=== PATIENT | female | born 1990 | race African-American/Black ===

== ENCOUNTER 2017-08-20 16:03 | Inpatient (IN) | payer MEDICAID ==
[~2017-08-20] VITALS: Ht 170.2 cm; Wt 100.0 kg
[2017-08-20 17:45] VITALS: BP 116/65
[2017-08-20] MEDS ORDERED: INFLUENZA VIRUS VACCINE QVS 2017-18 (3YR+)/PF 60 MCG/0.5 ML SYRINGE IM ONE (18:00)
[2017-08-20] MEDS: LORazepam 2 MG TABLET PO PRN (19:32)
[2017-08-20] MEDS: HALOPERIDOL 5 MG TABLET PO PRN (19:32)
[2017-08-20] MEDS: ZOLPIDEM TARTRATE 10 MG TABLET PO PRN (20:09)
[2017-08-20 21:29] VITALS: BP 122/67
[2017-08-21 00:29] VITALS: BP 130/72
[2017-08-21] MEDS: LORazepam 2 MG TABLET PO PRN ×4 (02:35→20:28)
[2017-08-21 04:00] VITALS: BP 127/71
[2017-08-21 08:13] LABS: BASOPHILS % (AUTO) 0.2 % (0.0-2.0); EOSINOPHILS % (AUTO) 2.8 % (1.0-6.0); HEMATOCRIT 30.4 % (36-46); HEMOGLOBIN 10.2 g/dL (12.0-16.0); LYMPHOCYTES # (AUTO) 1.8 K/uL (1.0-4.8); LYMPHOCYTES % (AUTO) 13.1 % (22.0-44.0); MEAN CORPUSCULAR HEMOGLOBIN 26.7 pg (26.0-34.0); MEAN CORPUSCULAR HGB CONC 33.5 G/dL (31.0-37.0); MEAN CORPUSCULAR VOLUME 80 fL (80-100); MONOCYTES # (AUTO) 1.1 K/uL (0.1-1.0); MONOCYTES % (AUTO) 8.3 % (2.0-9.0); NEUTROPHILS # (AUTO) 10.2 K/uL (1.8-7.7); NEUTROPHILS % (AUTO) 75.6 % (40.0-70.0); PLATELET COUNT (AUTO) 415 K/uL (150-450); RED BLOOD CELL COUNT(AUTO) 3.81 MIL/uL (4.00-5.20); RED CELL DISTRIBUTION WIDTH 16.4 % (11.5-14.5); WHITE BLOOD COUNT (AUTO) 13.5 K/uL (4.5-11.0)
[2017-08-21 08:30] VITALS: BP 120/74
[2017-08-21 08:47] LABS: HEMOGLOBIN A1C 5.3 % (4.5-6.2)
[2017-08-21] MEDS: BACITRACIN 28.4 GM OINTMENT TP SCH ×2 (08:54→16:06)
[2017-08-21 08:56] LABS: ALANINE AMINOTRANSFERASE 24 U/L (12-78); ALBUMIN 2.9 g/dL (3.4-5.0); ANION GAP 7 mmol/L (8-16); ASPARTATE AMINOTRANSFERASE 15 U/L (15-37); BILIRUBIN,TOTAL 0.5 mg/dL (0.1-1.0); CALCIUM, TOTAL 8.5 mg/dL (8.8-10.5); CARBON DIOXIDE 28 mmol/L (22-29); CHLORIDE 102 mmol/L (98-107); CHOL/HDL RATIO 2.2 (3.9-5.7); CREATININE 0.58 mg/dL (0.60-1.30); GLOMERULAR FILTR. RATE CALC > 60 mL/min (>60); POTASSIUM 3.7 mmol/L (3.5-5.1); SODIUM SERUM 137 mmol/L (136-145); THYROID STIMULATING HORMONE 1.41 uIU/mL (0.36-3.74); TOTAL PROTEIN, SERUM 6.7 g/dL (6.4-8.2); UREA NITROGEN, BLOOD 8 mg/dL (7-18)
[2017-08-21] MEDS ORDERED: ACETAMINOPHEN 325 MG TABLET PO PRN (11:45)
[2017-08-21] MEDS: IBUPROFEN 600 MG TABLET PO PRN (14:36)
[2017-08-21 16:05] VITALS: BP 126/70
[2017-08-21] MEDS: SULFAMETHOX/TRIMETH DS 800-160 MG/TABLET PO SCH (16:06)
[2017-08-21] MEDS: HALOPERIDOL 5 MG TABLET PO PRN (16:06)
[2017-08-21] MEDS: NICOTINE 7 MG/24 HOUR PATCH TD SCH (17:27)
[2017-08-21] MEDS: RisperiDONE 1 MG TABLET PO SCH (20:27)
[2017-08-21] MEDS: ZOLPIDEM TARTRATE 10 MG TABLET PO PRN (20:28)
[2017-08-22 03:15] VITALS: BP 117/68
[2017-08-22] MEDS: IBUPROFEN 600 MG TABLET PO PRN ×3 (03:17→21:25)
[2017-08-22] MEDS: FERROUS SULFATE 325 MG EC TABLET PO SCH ×2 (06:32→16:42)
[2017-08-22] MEDS: RisperiDONE 1 MG TABLET PO SCH ×2 (08:10→20:22)
[2017-08-22] MEDS: SULFAMETHOX/TRIMETH DS 800-160 MG/TABLET PO SCH ×2 (08:10→16:42)
[2017-08-22] MEDS: BACITRACIN 28.4 GM OINTMENT TP SCH ×2 (08:10→16:43)
[2017-08-22] MEDS: NICOTINE 7 MG/24 HOUR PATCH TD SCH (08:11)
[2017-08-22] MEDS: LORazepam 2 MG TABLET PO PRN ×3 (08:11→20:22)
[2017-08-22 17:39] VITALS: BP 119/70
[2017-08-22] MEDS: ZOLPIDEM TARTRATE 10 MG TABLET PO PRN (21:01)
[2017-08-22 21:25] VITALS: BP 120/74
[2017-08-23 05:48] VITALS: BP 129/80
[2017-08-23] MEDS: FERROUS SULFATE 325 MG EC TABLET PO SCH ×2 (07:00→17:00)
[2017-08-23 08:10] VITALS: BP 124/77
[2017-08-23] MEDS: NICOTINE 7 MG/24 HOUR PATCH TD SCH (08:17)
[2017-08-23] MEDS: RisperiDONE 1 MG TABLET PO SCH ×2 (08:17→20:13)
[2017-08-23] MEDS: LORazepam 2 MG TABLET PO PRN (08:17)
[2017-08-23] MEDS: SULFAMETHOX/TRIMETH DS 800-160 MG/TABLET PO SCH ×2 (08:17→17:00)
[2017-08-23] MEDS: BACITRACIN 28.4 GM OINTMENT TP SCH ×2 (08:18→17:00)
[2017-08-23] MEDS: IBUPROFEN 600 MG TABLET PO PRN (11:35)
[2017-08-23 12:00] VITALS: BP 124/70
[2017-08-23] MEDS ORDERED: PERMETHRIN 1% 60 ML LOTION TP ONE (12:00)
[2017-08-23 19:04] VITALS: BP 118/70
[2017-08-23] MEDS: CEPHALEXIN MONOHYDRATE 500 MG CAPSULE PO SCH (20:13)
[2017-08-23] MEDS: ZOLPIDEM TARTRATE 10 MG TABLET PO PRN (20:17)
[2017-08-24 04:01] VITALS: BP 125/66
[2017-08-24] MEDS: FERROUS SULFATE 325 MG EC TABLET PO SCH ×2 (06:56→16:41)
[2017-08-24 08:30] VITALS: BP 128/73
[2017-08-24] MEDS: BACITRACIN 28.4 GM OINTMENT TP SCH ×2 (08:50→16:01)
[2017-08-24] MEDS: RisperiDONE 1 MG TABLET PO SCH ×2 (08:50→20:21)
[2017-08-24] MEDS: CEPHALEXIN MONOHYDRATE 500 MG CAPSULE PO SCH ×4 (08:50→20:21)
[2017-08-24] MEDS: SULFAMETHOX/TRIMETH DS 800-160 MG/TABLET PO SCH ×2 (08:50→16:01)
[2017-08-24] MEDS: NICOTINE 7 MG/24 HOUR PATCH TD SCH (08:51)
[2017-08-24 12:00] VITALS: BP 115/67
[2017-08-24] MEDS ORDERED: CEPH500 PO (13:40)
[2017-08-24] MEDS ORDERED: FERR-89 PO (13:44)
[2017-08-24] MEDS ORDERED: RISP1 PO (13:45)
[2017-08-24] MEDS ORDERED: BACTDSB PO (13:46)
[2017-08-24 17:15] VITALS: BP 130/74
[2017-08-25 06:38] VITALS: BP 117/67
[2017-08-25] MEDS: FERROUS SULFATE 325 MG EC TABLET PO SCH (06:53)
[2017-08-25] MEDS: CEPHALEXIN MONOHYDRATE 500 MG CAPSULE PO SCH (08:08)
[2017-08-25] MEDS: SULFAMETHOX/TRIMETH DS 800-160 MG/TABLET PO SCH (08:08)
[2017-08-25] MEDS: RisperiDONE 1 MG TABLET PO SCH (08:08)
[2017-08-25] MEDS: BACITRACIN 28.4 GM OINTMENT TP SCH (08:09)
[2017-08-25] MEDS: NICOTINE 7 MG/24 HOUR PATCH TD SCH (08:09)
[2017-08-25 08:30] VITALS: BP 109/84
[2017-08-25] MEDS ORDERED: CEPH250 PO (09:10)
== END 2017-08-25 15:24 | disposition home or self-care (01) | DRG 750 ==
LOC: B3A 17:11
DX: F20.0 Paranoid schizophrenia (principal); Z59.0 Homelessness; D64.9 Anemia, unspecified; K21.9 Gastro-esophageal reflux disease without esophagitis; R00.0 Tachycardia, unspecified; D72.829 Elevated white blood cell count, unspecified; L08.9 Local infection of the skin and subcutaneous tissue, unspecified; Z28.21 Immunization not carried out because of patient refusal
CPT/HCPCS: 83036; 84439; 84443; 87081

== ENCOUNTER 2017-08-23 14:10 | Emergency (ER) | payer MEDICAID ==
[~2017-08-23] VITALS: Ht 177.8 cm; Wt 90.9 kg
[2017-08-23] MEDS ORDERED: IOVERSOL 350 MG/ML 100 ML VIAL ONE (14:48)
[2017-08-23 15:25] LABS: BASOPHILS % (AUTO) 1.3 % (0.0-2.0); EOSINOPHILS % (AUTO) 2.8 % (1.0-6.0); HEMATOCRIT 31.9 % (36-46); HEMOGLOBIN 10.3 g/dL (12.0-16.0); LYMPHOCYTES # (AUTO) 2.5 K/uL (1.0-4.8); MEAN CORPUSCULAR HEMOGLOBIN 25.9 pg (26.0-34.0); MEAN CORPUSCULAR HGB CONC 32.3 G/dL (31.0-37.0); MEAN CORPUSCULAR VOLUME 80 fL (80-100); MONOCYTES # (AUTO) 0.9 K/uL (0.1-1.0); MONOCYTES % (AUTO) 5.3 % (2.0-9.0); NEUTROPHILS # (AUTO) 12.8 K/uL (1.8-7.7); NEUTROPHILS % (AUTO) 75.6 % (40.0-70.0); PLATELET COUNT (AUTO) 553 K/uL (150-450); RED BLOOD CELL COUNT(AUTO) 3.97 MIL/uL (4.00-5.20); RED CELL DISTRIBUTION WIDTH 16.3 % (11.5-14.5); WHITE BLOOD COUNT (AUTO) 16.9 K/uL (4.5-11.0)
[2017-08-23 15:32] LABS: ANION GAP 9 mmol/L (8-16); CARBON DIOXIDE 29 mmol/L (22-29); CHLORIDE 99 mmol/L (98-107); CREATININE 0.68 mg/dL (0.60-1.30); GLOMERULAR FILTR. RATE CALC > 60 mL/min (>60); POTASSIUM 4.7 mmol/L (3.5-5.1); SODIUM SERUM 137 mmol/L (136-145); UREA NITROGEN, BLOOD 11 mg/dL (7-18)
[2017-08-23] MEDS ORDERED: LIDOCAINE HCL/PF 1% 2 ML VIAL IM ONE (17:30)
[2017-08-23] MEDS ORDERED: CefTRIAXone SODIUM 1 GM/VIAL IM ONE (17:30)
[2017-08-23 18:11] VITALS: BP 125/80
[2017-08-24] MEDS ORDERED: CEPH500 PO (13:40)
[2017-08-24] MEDS ORDERED: FERR-89 PO (13:44)
[2017-08-24] MEDS ORDERED: RISP1 PO (13:45)
[2017-08-24] MEDS ORDERED: BACTDSB PO (13:46)
== END 2017-08-23 18:32 | disposition home or self-care (01) ==
LOC: EMS 14:11
DX: L02.11 Cutaneous abscess of neck (principal); K21.9 Gastro-esophageal reflux disease without esophagitis
CPT/HCPCS: 36415; 70491; 80048; 84703; 85025; 96372; 99285; J0696; J3490; Q9967

== ENCOUNTER 2018-01-19 18:53 | Emergency (ER) | payer MEDICAID ==
[~2018-01-19] VITALS: Ht 177.8 cm; Wt 100.0 kg
[~2018-01-19 18:53] MED LIST: BACTDSB PO; CEPH500 PO; FERR-89 PO; RISP1 PO
[2018-01-19 20:20] LABS: BASOPHILS % (AUTO) 1.4 % (0.0-2.0); EOSINOPHILS % (AUTO) 3.7 % (1.0-6.0); HEMATOCRIT 33.7 % (36-46); HEMOGLOBIN 10.9 g/dL (12.0-16.0); LYMPHOCYTES # (AUTO) 3.2 K/uL (1.0-4.8); LYMPHOCYTES % (AUTO) 23.5 % (22.0-44.0); MEAN CORPUSCULAR HGB CONC 32.4 G/dL (31.0-37.0); MEAN CORPUSCULAR VOLUME 74 fL (80-100); MONOCYTES # (AUTO) 0.7 K/uL (0.1-1.0); NEUTROPHILS # (AUTO) 9.1 K/uL (1.8-7.7); NEUTROPHILS % (AUTO) 66.4 % (40.0-70.0); PLATELET COUNT (AUTO) 580 K/uL (150-450); RED BLOOD CELL COUNT(AUTO) 4.56 MIL/uL (4.00-5.20); RED CELL DISTRIBUTION WIDTH 17.9 % (11.5-14.5)
[2018-01-19 20:28] LABS: ANION GAP 7 mmol/L (8-16); CALCIUM, TOTAL 8.6 mg/dL (8.8-10.5); CARBON DIOXIDE 29 mmol/L (22-29); CHLORIDE 101 mmol/L (98-107); CREATININE 0.64 mg/dL (0.60-1.30); GLOMERULAR FILTR. RATE CALC > 60 mL/min (>60); GLUCOSE,RANDOM 85 mg/dL (70-110); POTASSIUM 3.4 mmol/L (3.5-5.1); SODIUM SERUM 137 mmol/L (136-145); UREA NITROGEN, BLOOD 6 mg/dL (7-18)
[2018-01-19] MEDS ORDERED: LORazepam 2 MG/ML VIAL IM ONE (20:30)
[2018-01-19] MEDS ORDERED: HALOPERIDOL LACTATE 5 MG/ML VIAL IM ONE (20:30)
[2018-01-19] MEDS ORDERED: DiphenhydrAMINE HCL 25 MG CAPSULE PO ONE (20:30)
[2018-01-19] MEDS ORDERED: HALOPERIDOL 5 MG TABLET PO ONE (20:30)
[2018-01-19] MEDS ORDERED: DiphenhydrAMINE HCL 50 MG/ML VIAL IM ONE (20:30)
[2018-01-19] MEDS ORDERED: LORazepam 1 MG TABLET PO ONE (20:30)
[2018-01-19 20:34] LABS: ALANINE AMINOTRANSFERASE 24 U/L (12-78); ALBUMIN 3.8 g/dL (3.4-5.0); ALKALINE PHOSPHATASE 72 U/L (46-116); ASPARTATE AMINOTRANSFERASE 20 U/L (15-37); BILIRUBIN,TOTAL 0.2 mg/dL (0.1-1.0); TOTAL PROTEIN, SERUM 7.9 g/dL (6.4-8.2)
[2018-01-19 21:32] VITALS: BP 143/81
== END 2018-01-19 22:13 | disposition home or self-care (01) ==
LOC: EMS 18:55
DX: F20.9 Schizophrenia, unspecified (principal); K21.9 Gastro-esophageal reflux disease without esophagitis; G89.29 Other chronic pain; Z79.899 Other long term (current) drug therapy
CPT/HCPCS: 36415; 80053; 85025; 99284; G0480

== ENCOUNTER 2018-01-31 05:32 | Emergency (ER) | payer MEDICAID ==
[~2018-01-31] VITALS: Ht 165.1 cm; Wt 77.3 kg
[~2018-01-31 05:32] MED LIST changes: -BACTDSB PO; -CEPH500 PO
[2018-01-31 05:35] VITALS: BP 126/85
[2018-01-31] MEDS ORDERED: IBUPROFEN 600 MG TABLET PO ONE (08:30)
== END 2018-01-31 08:30 | disposition home or self-care (01) ==
LOC: EMS 05:34
DX: G89.29 Other chronic pain (principal); K21.9 Gastro-esophageal reflux disease without esophagitis
CPT/HCPCS: 99283

== ENCOUNTER 2018-02-07 04:39 | Emergency (ER) | payer MEDICAID ==
[~2018-02-07] VITALS: Ht 177.8 cm; Wt 118.2 kg
[2018-02-07 05:39] LABS: BASOPHILS % (AUTO) 0.5 % (0.0-2.0); EOSINOPHILS % (AUTO) 4.1 % (1.0-6.0); HEMATOCRIT 32.6 % (36-46); HEMOGLOBIN 10.6 g/dL (12.0-16.0); LYMPHOCYTES # (AUTO) 2.5 K/uL (1.0-4.8); MEAN CORPUSCULAR HEMOGLOBIN 24.1 pg (26.0-34.0); MEAN CORPUSCULAR HGB CONC 32.5 G/dL (31.0-37.0); MEAN CORPUSCULAR VOLUME 74 fL (80-100); MONOCYTES # (AUTO) 0.7 K/uL (0.1-1.0); MONOCYTES % (AUTO) 5.9 % (2.0-9.0); NEUTROPHILS # (AUTO) 8.6 K/uL (1.8-7.7); NEUTROPHILS % (AUTO) 69.5 % (40.0-70.0); PLATELET COUNT (AUTO) 459 K/uL (150-450); RED CELL DISTRIBUTION WIDTH 17.2 % (11.5-14.5)
[2018-02-07 05:42] LABS: ANION GAP 3 mmol/L (8-16); CALCIUM, TOTAL 8.1 mg/dL (8.8-10.5); CARBON DIOXIDE 29 mmol/L (22-29); CHLORIDE 103 mmol/L (98-107); CREATININE 0.71 mg/dL (0.60-1.30); GLOMERULAR FILTR. RATE CALC > 60 mL/min (>60); GLUCOSE,RANDOM 90 mg/dL (70-110); POTASSIUM 3.4 mmol/L (3.5-5.1); SODIUM SERUM 135 mmol/L (136-145); UREA NITROGEN, BLOOD 7 mg/dL (7-18)
[2018-02-07 05:48] LABS: ALANINE AMINOTRANSFERASE 21 U/L (12-78); ALBUMIN 3.4 g/dL (3.4-5.0); ALKALINE PHOSPHATASE 66 U/L (46-116); ASPARTATE AMINOTRANSFERASE 17 U/L (15-37); BILIRUBIN,TOTAL 0.3 mg/dL (0.1-1.0); TOTAL PROTEIN, SERUM 7.4 g/dL (6.4-8.2)
[2018-02-07] MEDS ORDERED: IBUPROFEN 600 MG TABLET PO ONE (08:15)
[2018-02-07 08:30] VITALS: BP 112/82
== END 2018-02-07 08:40 | disposition home or self-care (01) ==
LOC: EMS 04:40
DX: F32.9 Major depressive disorder, single episode, unspecified (principal); R45.851 Suicidal ideations; M79.1 Myalgia; E87.6 Hypokalemia; F20.9 Schizophrenia, unspecified; K21.9 Gastro-esophageal reflux disease without esophagitis; Z59.0 Homelessness
CPT/HCPCS: 36415; 80053; 85025; 99284; G0480

== ENCOUNTER 2019-03-11 19:22 | Inpatient (IN) | payer MEDICAID ==
[~2019-03-11] VITALS: Ht 177.8 cm; Wt 111.5 kg
[2019-03-11] MEDS ORDERED: HALOPERIDOL 5 MG TABLET PO PRN (21:45)
[2019-03-11] MEDS ORDERED: ZOLPIDEM TARTRATE 10 MG TABLET PO PRN (21:45)
[2019-03-11 21:53] VITALS: BP 125/74
[2019-03-12 06:08] VITALS: BP 127/72
[2019-03-12 07:40] LABS: BASOPHILS % (AUTO) 0.7 % (0.0-2.0); EOSINOPHILS % (AUTO) 3.1 % (1.0-6.0); HEMATOCRIT 32.4 % (36-46); HEMOGLOBIN 10.4 g/dL (12.0-16.0); LYMPHOCYTES # (AUTO) 2.3 K/uL (1.0-4.8); LYMPHOCYTES % (AUTO) 21.5 % (22.0-44.0); MEAN CORPUSCULAR HEMOGLOBIN 24.2 pg (26.0-34.0); MEAN CORPUSCULAR HGB CONC 32.2 G/dL (31.0-37.0); MEAN CORPUSCULAR VOLUME 75 fL (80-100); MONOCYTES # (AUTO) 0.5 K/uL (0.1-1.0); MONOCYTES % (AUTO) 4.8 % (2.0-9.0); NEUTROPHILS # (AUTO) 7.3 K/uL (1.8-7.7); NEUTROPHILS % (AUTO) 69.9 % (40.0-70.0); PLATELET COUNT (AUTO) 551 K/uL (150-450); RED CELL DISTRIBUTION WIDTH 19.4 % (11.5-14.5)
[2019-03-12 08:11] LABS: ALANINE AMINOTRANSFERASE 18 U/L (12-78); ALBUMIN 3.1 g/dL (3.4-5.0); ALKALINE PHOSPHATASE 73 U/L (46-116); ANION GAP 10 mmol/L (8-16); ASPARTATE AMINOTRANSFERASE 14 U/L (15-37); BILIRUBIN,TOTAL 0.3 mg/dL (0.1-1.0); CALCIUM, TOTAL 8.6 mg/dL (8.8-10.5); CARBON DIOXIDE 27 mmol/L (22-29); CHLORIDE 105 mmol/L (98-107); CHOL/HDL RATIO 3.7 (3.9-5.7); CHOLESTEROL 126 mg/dL (131-200); CREATININE 0.73 mg/dL (0.60-1.30); FREE T4 (FREE THYROXINE) 0.96 ng/dL (0.76-1.46); GLOMERULAR FILTR. RATE CALC > 60 mL/min (>60); GLUCOSE,RANDOM 83 mg/dL (70-110); HCG,QUANTITATIVE < 1 mIU/mL (0-6); HDL CHOLESTEROL 34 mg/dL (40-60); LDL CHOL (CALC.) 77 mg/dL (0-130); SODIUM SERUM 142 mmol/L (136-145); THYROID STIMULATING HORMONE 1.62 uIU/mL (0.36-3.74); TOTAL PROTEIN, SERUM 6.9 g/dL (6.4-8.2); TRIGLYCERIDES 77 mg/dL (15-150); UREA NITROGEN, BLOOD 8 mg/dL (7-18)
[2019-03-12 08:14] VITALS: BP 135/80
[2019-03-12] MEDS ORDERED: ONDANSETRON HCL 4 MG TABLET PO PRN (08:15)
[2019-03-12] MEDS ORDERED: MAGNESIUM HYDROXIDE SUSPENSION 30 ML UDCUP PO PRN (08:15)
[2019-03-12] MEDS ORDERED: ALBUTEROL SULFATE HFA 90 MCG/PUFF 8 GM INHALER IH PRN (08:15)
[2019-03-12] MEDS ORDERED: OMEPRAZOLE 20 MG CAPSULE PO PRN (08:15)
[2019-03-12] MEDS ORDERED: MAG HYDROX/AL HYDROX/SIMETH ES 30 ML SUSPENSION UDCUP PO PRN (08:15)
[2019-03-12] MEDS ORDERED: PETROLATUM,WHITE 28 GM JELLY TP PRN (08:15)
[2019-03-12] MEDS ORDERED: DOCUSATE SODIUM 100 MG CAPSULE PO PRN (08:15)
[2019-03-12] MEDS ORDERED: BACITRACIN 28.4 GM OINTMENT TP PRN (08:15)
[2019-03-12] MEDS ORDERED: ACETAMINOPHEN 325 MG TABLET PO PRN (08:15)
[2019-03-12] MEDS ORDERED: BENZOCAINE/MENTHOL LOZENGE MM PRN (08:15)
[2019-03-12] MEDS ORDERED: LOPERAMIDE HCL 2 MG CAPSULE PO PRN (08:15)
[2019-03-12] MEDS ORDERED: CloNIDine HCL 0.1 MG TABLET PO PRN (08:15)
[2019-03-12 15:15] VITALS: BP 127/88
[2019-03-12] MEDS: IBUPROFEN 600 MG TABLET PO PRN (15:17)
[2019-03-12 16:05] VITALS: BP 127/88
[2019-03-12] MEDS: LORazepam 2 MG TABLET PO PRN (16:37)
[2019-03-12] MEDS: RisperiDONE 3 MG TABLET PO SCH (20:56)
[2019-03-13] MEDS: RisperiDONE 3 MG TABLET PO SCH ×2 (08:54→16:12)
[2019-03-13] MEDS: LORazepam 2 MG TABLET PO PRN ×2 (12:20→16:55)
[2019-03-13 16:00] VITALS: BP 158/85
[2019-03-13] MEDS: IBUPROFEN 600 MG TABLET PO PRN (16:12)
[2019-03-14 05:52] VITALS: BP 107/65
[2019-03-14 08:28] VITALS: BP 122/74
[2019-03-14] MEDS: LORazepam 2 MG TABLET PO PRN ×2 (09:01→17:24)
[2019-03-14] MEDS: RisperiDONE 3 MG TABLET PO SCH ×2 (09:01→17:02)
[2019-03-14] MEDS: MULTIVITAMINS WITH IRON TABLET PO SCH (09:01)
[2019-03-14] MEDS: ASPIRIN 81 MG CHEWABLE TABLET PO SCH (09:03)
[2019-03-14 15:50] VITALS: BP 102/59
[2019-03-14 16:26] VITALS: BP 102/59
[2019-03-15 04:23] VITALS: BP 104/63
[2019-03-15 08:04] VITALS: BP 127/72
[2019-03-15] MEDS ORDERED: ASPI81TA39 PO (08:11)
[2019-03-15] MEDS ORDERED: MVITFE PO (08:11)
[2019-03-15] MEDS ORDERED: RISP3 PO (08:11)
[2019-03-15] MEDS: RisperiDONE 3 MG TABLET PO SCH (08:53)
[2019-03-15] MEDS: ASPIRIN 81 MG CHEWABLE TABLET PO SCH (08:53)
[2019-03-15] MEDS: MULTIVITAMINS WITH IRON TABLET PO SCH (08:53)
== END 2019-03-15 10:02 | disposition home or self-care (01) | DRG 750 ==
LOC: B3A 20:35
PROVIDERS: ADMIT Psychiatry & Neurology Psychiatry; ATTEND Psychiatry & Neurology Psychiatry
DX: F25.9 Schizoaffective disorder, unspecified (principal); R45.851 Suicidal ideations; D64.9 Anemia, unspecified; F32.9 Major depressive disorder, single episode, unspecified; F41.9 Anxiety disorder, unspecified; G47.00 Insomnia, unspecified; K59.00 Constipation, unspecified; D47.3 Essential (hemorrhagic) thrombocythemia; D72.89 Other specified disorders of white blood cells
CPT/HCPCS: 84439; 84443; 87081

== ENCOUNTER 2019-03-17 19:35 | Inpatient (IN) | payer MEDICAID, OTHER ==
[~2019-03-17] VITALS: Ht 180.3 cm; Wt 114.5 kg
[~2019-03-17 19:35] MED LIST changes: +ASPI81TA39 PO; -FERR-89 PO; +MVITFE PO; -RISP1 PO; +RISP3 PO
[2019-03-17 20:52] LABS: AMPHET/METH SCREEN,URINE NEGATIVE (NEGATIVE); BARBITURATE SCREEN, URINE NEGATIVE (NEGATIVE); BENZODIAZEPINES SCREEN,URINE NEGATIVE (NEGATIVE); CANNABINOID SCREEN,URINE NEGATIVE (NEGATIVE); COCAINE SCREEN,URINE NEGATIVE (NEGATIVE); METHADONE SCREEN, URINE NEGATIVE (NEGATIVE); OPIATE SCREEN,URINE NEGATIVE (NEGATIVE); PHENCYCLIDINE SCREEN,URINE NEGATIVE (NEGATIVE)
[2019-03-17 23:30] LABS: BASOPHILS % (AUTO) 0.8 % (0.0-2.0); EOSINOPHILS % (AUTO) 3.3 % (1.0-6.0); HEMATOCRIT 30.9 % (36-46); HEMOGLOBIN 9.9 g/dL (12.0-16.0); LYMPHOCYTES # (AUTO) 3.4 K/uL (1.0-4.8); LYMPHOCYTES % (AUTO) 24.3 % (22.0-44.0); MEAN CORPUSCULAR HGB CONC 32.1 G/dL (31.0-37.0); MEAN CORPUSCULAR VOLUME 75 fL (80-100); MONOCYTES # (AUTO) 0.9 K/uL (0.1-1.0); MONOCYTES % (AUTO) 6.4 % (2.0-9.0); NEUTROPHILS % (AUTO) 65.2 % (40.0-70.0); PLATELET COUNT (AUTO) 497 K/uL (150-450); RED BLOOD CELL COUNT(AUTO) 4.13 MIL/uL (4.00-5.20); RED CELL DISTRIBUTION WIDTH 18.9 % (11.5-14.5)
[2019-03-17 23:36] LABS: ANION GAP 10 mmol/L (8-16); CALCIUM, TOTAL 8.1 mg/dL (8.8-10.5); CARBON DIOXIDE 23 mmol/L (22-29); CHLORIDE 103 mmol/L (98-107); CREATININE 0.61 mg/dL (0.60-1.30); GLOMERULAR FILTR. RATE CALC > 60 mL/min (>60); GLUCOSE,RANDOM 127 mg/dL (70-110); POTASSIUM 3.5 mmol/L (3.5-5.1); SODIUM SERUM 136 mmol/L (136-145); UREA NITROGEN, BLOOD 8 mg/dL (7-18)
[2019-03-17 23:44] LABS: ALANINE AMINOTRANSFERASE 19 U/L (12-78); ALBUMIN 2.9 g/dL (3.4-5.0); ALKALINE PHOSPHATASE 70 U/L (46-116); ASPARTATE AMINOTRANSFERASE 14 U/L (15-37); BILIRUBIN,TOTAL 0.1 mg/dL (0.1-1.0); TOTAL PROTEIN, SERUM 6.6 g/dL (6.4-8.2)
[2019-03-18] MEDS ORDERED: HALOPERIDOL 5 MG TABLET PO PRN (00:30)
[2019-03-18] MEDS ORDERED: ZOLPIDEM TARTRATE 10 MG TABLET PO PRN (00:30)
[2019-03-18 03:00] LABS: APPEARANCE,URINE CLEAR (CLEAR); BILIRUBIN,URINE NEGATIVE (NEGATIVE); GLUCOSE, URINE (UA) NEGATIVE (NEGATIVE); KETONES,URINE NEGATIVE (NEGATIVE); LEUKOCYTE ESTERASE ,URINE NEGATIVE (NEGATIVE); NITRATE,URINE NEGATIVE (NEGATIVE); OCCULT BLOOD,URINE NEGATIVE (NEGATIVE); PROTEIN,URINE NEGATIVE (NEGATIVE); UROBILINOGEN,URINE 0.2 mg/dL (<=1.0)
[2019-03-18 03:21] VITALS: BP 116/61
[2019-03-18 08:41] VITALS: BP 105/87
[2019-03-18] MEDS: LORazepam 2 MG TABLET PO PRN (10:13)
[2019-03-18] MEDS ORDERED: OMEPRAZOLE 20 MG CAPSULE PO PRN (11:00)
[2019-03-18] MEDS ORDERED: ALBUTEROL SULFATE HFA 90 MCG/PUFF 8 GM INHALER IH PRN (11:00)
[2019-03-18] MEDS ORDERED: IBUPROFEN 600 MG TABLET PO PRN (11:00)
[2019-03-18] MEDS ORDERED: ACETAMINOPHEN 325 MG TABLET PO PRN (11:00)
[2019-03-18] MEDS ORDERED: ONDANSETRON HCL 4 MG TABLET PO PRN (11:00)
[2019-03-18] MEDS ORDERED: PETROLATUM,WHITE 28 GM JELLY TP PRN (11:00)
[2019-03-18] MEDS ORDERED: CloNIDine HCL 0.1 MG TABLET PO PRN (11:00)
[2019-03-18] MEDS ORDERED: BENZOCAINE/MENTHOL LOZENGE MM PRN (11:00)
[2019-03-18] MEDS ORDERED: LOPERAMIDE HCL 2 MG CAPSULE PO PRN (11:00)
[2019-03-18] MEDS ORDERED: MAG HYDROX/AL HYDROX/SIMETH ES 30 ML SUSPENSION UDCUP PO PRN (11:00)
[2019-03-18] MEDS ORDERED: MAGNESIUM HYDROXIDE SUSPENSION 30 ML UDCUP PO PRN (11:00)
[2019-03-18] MEDS ORDERED: BACITRACIN 28.4 GM OINTMENT TP PRN (11:00)
[2019-03-18] MEDS ORDERED: DOCUSATE SODIUM 100 MG CAPSULE PO PRN (11:00)
[2019-03-18 17:03] VITALS: BP 110/65
[2019-03-18] MEDS: RisperiDONE 3 MG TABLET PO SCH (19:23)
[2019-03-19 06:37] LABS: BAND NEUTROPHILS % (MANUAL) 0 % (0-5)
[2019-03-19 06:39] LABS: HEMATOCRIT 34.3 % (36-46); HEMOGLOBIN 10.7 g/dL (12.0-16.0); MEAN CORPUSCULAR HGB CONC 31.2 G/dL (31.0-37.0); MEAN CORPUSCULAR VOLUME 77 fL (80-100); PLATELET COUNT (AUTO) 494 K/uL (150-450); RED BLOOD CELL COUNT(AUTO) 4.47 MIL/uL (4.00-5.20); RED CELL DISTRIBUTION WIDTH 18.8 % (11.5-14.5)
[2019-03-19 06:50] LABS: HEMOGLOBIN A1C 5.9 % (4.5-6.2)
[2019-03-19 07:11] LABS: ANION GAP 9 mmol/L (8-16); CALCIUM, TOTAL 8.2 mg/dL (8.8-10.5); CARBON DIOXIDE 24 mmol/L (22-29); CHLORIDE 102 mmol/L (98-107); CHOL/HDL RATIO 3.7 (3.9-5.7); CHOLESTEROL 119 mg/dL (131-200); CREATININE 0.58 mg/dL (0.60-1.30); GLOMERULAR FILTR. RATE CALC > 60 mL/min (>60); GLUCOSE,RANDOM 86 mg/dL (70-110); HDL CHOLESTEROL 32 mg/dL (40-60); LDL CHOL (CALC.) 51 mg/dL (0-130); PHOSPHORUS 3.6 mg/dL (2.5-4.9); POTASSIUM 4.4 mmol/L (3.5-5.1); SODIUM SERUM 135 mmol/L (136-145); TRIGLYCERIDES 181 mg/dL (15-150); UREA NITROGEN, BLOOD 6 mg/dL (7-18)
[2019-03-19 07:53] LABS: EOSINOPHILS % (MANUAL) 2 % (1-6); LYMPHOCYTES % (MANUAL) 19 % (22-44); MONOCYTES % (MANUAL) 8 % (2-9); SEGMENTED NEUTROPHILS % 71 % (40-70)
[2019-03-19] MEDS: LORazepam 2 MG TABLET PO PRN ×2 (08:12→12:45)
[2019-03-19] MEDS: MULTIVITAMINS WITH IRON TABLET PO SCH (08:15)
[2019-03-19] MEDS: ASPIRIN 81 MG CHEWABLE TABLET PO SCH (08:15)
[2019-03-19] MEDS: RisperiDONE 3 MG TABLET PO SCH ×2 (08:15→16:07)
[2019-03-19 10:34] VITALS: BP 122/73
[2019-03-19 18:00] VITALS: BP 122/83
[2019-03-20] MEDS: RisperiDONE 3 MG TABLET PO SCH (08:09)
[2019-03-20] MEDS: MULTIVITAMINS WITH IRON TABLET PO SCH (08:09)
[2019-03-20] MEDS: ASPIRIN 81 MG CHEWABLE TABLET PO SCH (08:09)
[2019-03-20 12:40] VITALS: BP 105/72
[2019-03-20] MEDS ORDERED: RISP3 PO (12:40)
== END 2019-03-20 14:50 | disposition home or self-care (01) | DRG 750 ==
LOC: EDBD → EMS 19:36 → 3EC 03-18 02:11
PROVIDERS: ADMIT Psychiatry & Neurology Psychiatry; ATTEND Psychiatry & Neurology Psychiatry
DX: F20.0 Paranoid schizophrenia (principal); R45.851 Suicidal ideations; F41.9 Anxiety disorder, unspecified; D72.829 Elevated white blood cell count, unspecified; D64.9 Anemia, unspecified; G47.00 Insomnia, unspecified; K59.00 Constipation, unspecified; D47.3 Essential (hemorrhagic) thrombocythemia; F32.9 Major depressive disorder, single episode, unspecified; K21.9 Gastro-esophageal reflux disease without esophagitis; Z56.0 Unemployment, unspecified; Z79.899 Other long term (current) drug therapy
CPT/HCPCS: 83036; 83735; 84100; 85007; 87081

== ENCOUNTER 2019-03-21 17:32 | Emergency (ER) | payer MEDICAID, OTHER ==
[~2019-03-21] VITALS: Ht 180.3 cm; Wt 111.0 kg
[2019-03-21 17:52] LABS: BASOPHILS % (AUTO) 0.9 % (0.0-2.0); EOSINOPHILS % (AUTO) 2.4 % (1.0-6.0); HEMATOCRIT 33.9 % (36-46); HEMOGLOBIN 10.7 g/dL (12.0-16.0); LYMPHOCYTES # (AUTO) 2.9 K/uL (1.0-4.8); LYMPHOCYTES % (AUTO) 18.8 % (22.0-44.0); MEAN CORPUSCULAR HGB CONC 31.5 G/dL (31.0-37.0); MEAN CORPUSCULAR VOLUME 76 fL (80-100); MONOCYTES # (AUTO) 0.9 K/uL (0.1-1.0); NEUTROPHILS % (AUTO) 71.9 % (40.0-70.0); PLATELET COUNT (AUTO) 534 K/uL (150-450); RED BLOOD CELL COUNT(AUTO) 4.45 MIL/uL (4.00-5.20); RED CELL DISTRIBUTION WIDTH 18.8 % (11.5-14.5)
[2019-03-21 18:10] LABS: ANION GAP 9 mmol/L (8-16); CALCIUM, TOTAL 8.8 mg/dL (8.8-10.5); CARBON DIOXIDE 25 mmol/L (22-29); CHLORIDE 102 mmol/L (98-107); CREATININE 0.63 mg/dL (0.60-1.30); GLOMERULAR FILTR. RATE CALC > 60 mL/min (>60); GLUCOSE,RANDOM 104 mg/dL (70-110); POTASSIUM 3.7 mmol/L (3.5-5.1); SODIUM SERUM 136 mmol/L (136-145); UREA NITROGEN, BLOOD 8 mg/dL (7-18)
[2019-03-21] MEDS ORDERED: LORazepam 1 MG TABLET PO ONE (18:15)
[2019-03-21 18:17] LABS: ALANINE AMINOTRANSFERASE 25 U/L (12-78); ALBUMIN 3.4 g/dL (3.4-5.0); ALKALINE PHOSPHATASE 78 U/L (46-116); ASPARTATE AMINOTRANSFERASE 19 U/L (15-37); BILIRUBIN,TOTAL 0.1 mg/dL (0.1-1.0); TOTAL PROTEIN, SERUM 7.5 g/dL (6.4-8.2)
[2019-03-21 18:58] LABS: AMPHET/METH SCREEN,URINE NEGATIVE (NEGATIVE); BARBITURATE SCREEN, URINE NEGATIVE (NEGATIVE); BENZODIAZEPINES SCREEN,URINE NEGATIVE (NEGATIVE); CANNABINOID SCREEN,URINE NEGATIVE (NEGATIVE); COCAINE SCREEN,URINE NEGATIVE (NEGATIVE); METHADONE SCREEN, URINE NEGATIVE (NEGATIVE); OPIATE SCREEN,URINE NEGATIVE (NEGATIVE); PHENCYCLIDINE SCREEN,URINE NEGATIVE (NEGATIVE)
[2019-03-22 09:00] VITALS: BP 113/66
[2019-03-22] MEDS ORDERED: LORazepam 2 MG TABLET PO ONE (09:00)
== END 2019-03-22 12:29 | disposition home or self-care (01) ==
LOC: EDUNIT# 17:32 → EMS 17:34
DX: F41.9 Anxiety disorder, unspecified (principal); F32.9 Major depressive disorder, single episode, unspecified; D64.9 Anemia, unspecified; F20.9 Schizophrenia, unspecified; K21.9 Gastro-esophageal reflux disease without esophagitis; G89.29 Other chronic pain; Z79.82 Long term (current) use of aspirin
CPT/HCPCS: 36415; 80053; 80307; 84702; 85025; 99284; G0480

== ENCOUNTER 2019-03-24 19:42 | Emergency (ER) | payer OTHER ==
[~2019-03-24] VITALS: Ht 182.9 cm; Wt 111.0 kg
[2019-03-24 20:55] LABS: BASOPHILS % (AUTO) 0.9 % (0.0-2.0); EOSINOPHILS % (AUTO) 0.8 % (1.0-6.0); HEMATOCRIT 32.9 % (36-46); HEMOGLOBIN 10.3 g/dL (12.0-16.0); LYMPHOCYTES # (AUTO) 2.9 K/uL (1.0-4.8); LYMPHOCYTES % (AUTO) 15.2 % (22.0-44.0); MEAN CORPUSCULAR HGB CONC 31.4 G/dL (31.0-37.0); MEAN CORPUSCULAR VOLUME 77 fL (80-100); MONOCYTES # (AUTO) 0.9 K/uL (0.1-1.0); NEUTROPHILS # (AUTO) 14.8 K/uL (1.8-7.7); NEUTROPHILS % (AUTO) 78.1 % (40.0-70.0); PLATELET COUNT (AUTO) 543 K/uL (150-450); RED CELL DISTRIBUTION WIDTH 19.2 % (11.5-14.5)
[2019-03-24 21:00] LABS: ANION GAP 10 mmol/L (8-16); CALCIUM, TOTAL 8.6 mg/dL (8.8-10.5); CARBON DIOXIDE 23 mmol/L (22-29); CHLORIDE 103 mmol/L (98-107); GLOMERULAR FILTR. RATE CALC > 60 mL/min (>60); GLUCOSE,RANDOM 109 mg/dL (70-110); POTASSIUM 3.6 mmol/L (3.5-5.1); SODIUM SERUM 136 mmol/L (136-145); UREA NITROGEN, BLOOD 7 mg/dL (7-18)
[2019-03-24 21:10] LABS: ALANINE AMINOTRANSFERASE 22 U/L (12-78); ALBUMIN 3.5 g/dL (3.4-5.0); ALKALINE PHOSPHATASE 73 U/L (46-116); ASPARTATE AMINOTRANSFERASE 19 U/L (15-37); BILIRUBIN,TOTAL 0.3 mg/dL (0.1-1.0); HCG,QUANTITATIVE < 1 mIU/mL (0-6); TOTAL PROTEIN, SERUM 7.6 g/dL (6.4-8.2)
[2019-03-24 21:21] LABS: PLATELET MORPHOLOGY COMMENT INCREASED
[2019-03-24] MEDS ORDERED: IBUPROFEN 800 MG TABLET PO ONE (23:00)
[2019-03-24] MEDS ORDERED: LORazepam 1 MG TABLET PO ONE (23:15)
[2019-03-24] MEDS ORDERED: DiphenhydrAMINE HCL 25 MG CAPSULE PO ONE (23:15)
[2019-03-24] MEDS ORDERED: HALOPERIDOL 5 MG TABLET PO ONE (23:15)
[2019-03-25 05:46] VITALS: BP 132/78
== END 2019-03-25 05:45 | disposition left against medical advice (07) ==
LOC: EMS 19:43
DX: F22 Delusional disorders (principal); D72.829 Elevated white blood cell count, unspecified; F20.9 Schizophrenia, unspecified; K21.9 Gastro-esophageal reflux disease without esophagitis; Z79.82 Long term (current) use of aspirin
CPT/HCPCS: 36415; 80053; 81002; 84702; 85025; 99284; G0480

== ENCOUNTER 2019-03-25 11:17 | Inpatient (IN) | payer MEDICAID, OTHER ==
[~2019-03-25] VITALS: Ht 177.8 cm; Wt 112.6 kg
[2019-03-25 12:23] LABS: BASOPHILS % (AUTO) 0.5 % (0.0-2.0); EOSINOPHILS % (AUTO) 1.1 % (1.0-6.0); HEMATOCRIT 30.4 % (36-46); HEMOGLOBIN 9.7 g/dL (12.0-16.0); LYMPHOCYTES # (AUTO) 1.9 K/uL (1.0-4.8); LYMPHOCYTES % (AUTO) 13.6 % (22.0-44.0); MEAN CORPUSCULAR HEMOGLOBIN 24.4 pg (26.0-34.0); MEAN CORPUSCULAR HGB CONC 31.7 G/dL (31.0-37.0); MEAN CORPUSCULAR VOLUME 77 fL (80-100); MONOCYTES # (AUTO) 0.7 K/uL (0.1-1.0); MONOCYTES % (AUTO) 5.1 % (2.0-9.0); NEUTROPHILS # (AUTO) 11.1 K/uL (1.8-7.7); NEUTROPHILS % (AUTO) 79.7 % (40.0-70.0); PLATELET COUNT (AUTO) 482 K/uL (150-450); RED BLOOD CELL COUNT(AUTO) 3.96 MIL/uL (4.00-5.20); RED CELL DISTRIBUTION WIDTH 19.2 % (11.5-14.5)
[2019-03-25 12:29] LABS: ANION GAP 9 mmol/L (8-16); CALCIUM, TOTAL 8.6 mg/dL (8.8-10.5); CARBON DIOXIDE 25 mmol/L (22-29); CHLORIDE 103 mmol/L (98-107); GLOMERULAR FILTR. RATE CALC > 60 mL/min (>60); GLUCOSE,RANDOM 84 mg/dL (70-110); POTASSIUM 3.4 mmol/L (3.5-5.1); SODIUM SERUM 137 mmol/L (136-145); UREA NITROGEN, BLOOD 7 mg/dL (7-18)
[2019-03-25 12:34] LABS: ALANINE AMINOTRANSFERASE 24 U/L (12-78); ALBUMIN 3.1 g/dL (3.4-5.0); ALKALINE PHOSPHATASE 70 U/L (46-116); ASPARTATE AMINOTRANSFERASE 18 U/L (15-37); BILIRUBIN,TOTAL 0.3 mg/dL (0.1-1.0); TOTAL PROTEIN, SERUM 6.9 g/dL (6.4-8.2)
[2019-03-25] MEDS ORDERED: ZOLPIDEM TARTRATE 10 MG TABLET PO PRN (13:45)
[2019-03-25 15:48] LABS: AMPHET/METH SCREEN,URINE NEGATIVE (NEGATIVE); BARBITURATE SCREEN, URINE NEGATIVE (NEGATIVE); BENZODIAZEPINES SCREEN,URINE NEGATIVE (NEGATIVE); CANNABINOID SCREEN,URINE NEGATIVE (NEGATIVE); COCAINE SCREEN,URINE NEGATIVE (NEGATIVE); METHADONE SCREEN, URINE NEGATIVE (NEGATIVE); OPIATE SCREEN,URINE NEGATIVE (NEGATIVE)
[2019-03-25 15:49] LABS: PHENCYCLIDINE SCREEN,URINE NEGATIVE (NEGATIVE)
[2019-03-25 16:30] VITALS: BP 126/67
[2019-03-25] MEDS ORDERED: BENZOCAINE/MENTHOL LOZENGE MM PRN (17:30)
[2019-03-25] MEDS ORDERED: POTASSIUM CHLORIDE 20 MEQ ER TABLET PO ONE (17:30)
[2019-03-25] MEDS ORDERED: CloNIDine HCL 0.1 MG TABLET PO PRN (17:30)
[2019-03-25] MEDS ORDERED: CHLORHEXIDINE GLUCONATE 0.12% 15 ML UDCUP ORAL RINSE PO PRN (17:30)
[2019-03-25] MEDS ORDERED: BACITRACIN 28.4 GM OINTMENT TP PRN (17:30)
[2019-03-25] MEDS ORDERED: MAG HYDROX/AL HYDROX/SIMETH ES 30 ML SUSPENSION UDCUP PO PRN (17:30)
[2019-03-25] MEDS ORDERED: ONDANSETRON HCL 4 MG TABLET PO PRN (17:30)
[2019-03-25] MEDS ORDERED: ACETAMINOPHEN 325 MG TABLET PO PRN (17:30)
[2019-03-25] MEDS ORDERED: ALBUTEROL SULFATE HFA 90 MCG/PUFF 8 GM INHALER IH PRN (17:30)
[2019-03-25] MEDS ORDERED: MAGNESIUM HYDROXIDE SUSPENSION 30 ML UDCUP PO PRN (17:30)
[2019-03-25] MEDS ORDERED: LOPERAMIDE HCL 2 MG CAPSULE PO PRN (17:30)
[2019-03-25] MEDS ORDERED: PETROLATUM,WHITE 28 GM JELLY TP PRN (17:30)
[2019-03-25] MEDS: IBUPROFEN 600 MG TABLET PO PRN (17:51)
[2019-03-26 03:30] VITALS: BP 132/70
[2019-03-26 07:45] VITALS: BP 115/58
[2019-03-26 08:00] VITALS: BP 115/58
[2019-03-26 08:24] LABS: EOSINOPHILS % (AUTO) 3.3 % (1.0-6.0); HEMATOCRIT 31.2 % (36-46); HEMOGLOBIN 9.9 g/dL (12.0-16.0); LYMPHOCYTES # (AUTO) 2.2 K/uL (1.0-4.8); LYMPHOCYTES % (AUTO) 22.5 % (22.0-44.0); MEAN CORPUSCULAR HEMOGLOBIN 24.4 pg (26.0-34.0); MEAN CORPUSCULAR HGB CONC 31.7 G/dL (31.0-37.0); MEAN CORPUSCULAR VOLUME 77 fL (80-100); MONOCYTES # (AUTO) 0.5 K/uL (0.1-1.0); MONOCYTES % (AUTO) 5.2 % (2.0-9.0); NEUTROPHILS # (AUTO) 6.8 K/uL (1.8-7.7); PLATELET COUNT (AUTO) 469 K/uL (150-450); RED BLOOD CELL COUNT(AUTO) 4.05 MIL/uL (4.00-5.20); RED CELL DISTRIBUTION WIDTH 19.4 % (11.5-14.5)
[2019-03-26] MEDS: IBUPROFEN 600 MG TABLET PO PRN ×2 (08:31→17:44)
[2019-03-26 08:51] LABS: ANION GAP 7 mmol/L (8-16); CALCIUM, TOTAL 8.6 mg/dL (8.8-10.5); CARBON DIOXIDE 27 mmol/L (22-29); CHLORIDE 105 mmol/L (98-107); CHOL/HDL RATIO 3.8 (3.9-5.7); CHOLESTEROL 121 mg/dL (131-200); CREATININE 0.64 mg/dL (0.60-1.30); FREE T4 (FREE THYROXINE) 0.91 ng/dL (0.76-1.46); GLOMERULAR FILTR. RATE CALC > 60 mL/min (>60); GLUCOSE,RANDOM 74 mg/dL (70-110); HCG,QUANTITATIVE < 1 mIU/mL (0-6); HDL CHOLESTEROL 32 mg/dL (40-60); LDL CHOL (CALC.) 71 mg/dL (0-130); POTASSIUM 3.9 mmol/L (3.5-5.1); SODIUM SERUM 139 mmol/L (136-145); THYROID STIMULATING HORMONE 1.53 uIU/mL (0.36-3.74); TRIGLYCERIDES 89 mg/dL (15-150); UREA NITROGEN, BLOOD 9 mg/dL (7-18)
[2019-03-26] MEDS: LORazepam 2 MG TABLET PO PRN (10:29)
[2019-03-26] MEDS: RisperiDONE 3 MG TABLET PO SCH ×2 (10:29→20:21)
[2019-03-26 16:11] VITALS: BP 116/88
[2019-03-26] MEDS ORDERED: LORATADINE 10 MG TABLET PO PRN (17:45)
[2019-03-26 17:46] VITALS: BP 121/82
[2019-03-26] MEDS: DiphenhydrAMINE HCL 25 MG CAPSULE PO PRN (20:21)
[2019-03-27 00:20] VITALS: BP 101/50
[2019-03-27 08:00] VITALS: BP 103/62
[2019-03-27] MEDS: RisperiDONE 3 MG TABLET PO SCH ×2 (09:40→20:11)
[2019-03-27] MEDS: LORazepam 2 MG TABLET PO PRN (13:46)
[2019-03-27] MEDS: HALOPERIDOL 5 MG TABLET PO PRN (14:05)
[2019-03-27 16:00] VITALS: BP 118/78
[2019-03-28 06:24] VITALS: BP 116/59
[2019-03-28] MEDS: RisperiDONE 3 MG TABLET PO SCH ×2 (08:04→20:07)
[2019-03-28 08:20] VITALS: BP 110/61
[2019-03-28] MEDS: LORazepam 2 MG TABLET PO PRN (13:29)
[2019-03-28] MEDS: MULTIVITAMINS WITH IRON TABLET PO SCH (14:20)
[2019-03-28] MEDS: IBUPROFEN 600 MG TABLET PO PRN (14:20)
[2019-03-28 16:06] VITALS: BP 100/60
[2019-03-29 00:04] VITALS: BP 102/66
[2019-03-29] MEDS: IBUPROFEN 600 MG TABLET PO PRN (02:12)
[2019-03-29] MEDS: DiphenhydrAMINE HCL 25 MG CAPSULE PO PRN (02:12)
[2019-03-29 08:03] VITALS: BP 103/60
[2019-03-29] MEDS: RisperiDONE 3 MG TABLET PO SCH ×2 (08:37→20:02)
[2019-03-29] MEDS: MULTIVITAMINS WITH IRON TABLET PO SCH (08:37)
[2019-03-29] MEDS: LORazepam 2 MG TABLET PO PRN (09:21)
[2019-03-29] MEDS: HALOPERIDOL 5 MG TABLET PO PRN (13:51)
[2019-03-29 16:17] VITALS: BP 117/69
[2019-03-29] MEDS: ASPIRIN 81 MG EC TABLET PO SCH (20:02)
[2019-03-30] MEDS: DiphenhydrAMINE HCL 25 MG CAPSULE PO PRN (01:05)
[2019-03-30 01:52] VITALS: BP 127/84
[2019-03-30] MEDS: MULTIVITAMINS WITH IRON TABLET PO SCH (08:17)
[2019-03-30] MEDS: RisperiDONE 3 MG TABLET PO SCH (08:17)
[2019-03-30] MEDS: ASPIRIN 81 MG EC TABLET PO SCH (08:17)
[2019-03-30] MEDS: LORazepam 2 MG TABLET PO PRN (08:19)
[2019-03-30 08:23] VITALS: BP 140/91
== END 2019-03-30 13:15 | disposition home or self-care (01) | DRG 750 ==
LOC: EMS 11:17 → B2S 15:00
PROVIDERS: ADMIT Psychiatry & Neurology Child & Adolescent Psychiatry; ATTEND Psychiatry & Neurology Psychiatry
DX: F20.0 Paranoid schizophrenia (principal); R45.851 Suicidal ideations; D64.9 Anemia, unspecified; D72.829 Elevated white blood cell count, unspecified; F32.9 Major depressive disorder, single episode, unspecified; G47.00 Insomnia, unspecified; K21.9 Gastro-esophageal reflux disease without esophagitis; K59.00 Constipation, unspecified; G89.29 Other chronic pain; Z79.899 Other long term (current) drug therapy
CPT/HCPCS: 84439; 84443; 87081; G0480

== ENCOUNTER 2019-04-02 14:17 | Emergency (ER) | payer MEDICAID ==
[~2019-04-02] VITALS: Ht 177.8 cm; Wt 113.6 kg
[2019-04-02 15:09] VITALS: BP 121/76
[2019-04-02] MEDS ORDERED: PALI156D IM (15:13)
== END 2019-04-02 15:40 | disposition left against medical advice (07) ==
LOC: EMS 14:20
DX: F20.0 Paranoid schizophrenia (principal); Z79.82 Long term (current) use of aspirin; Z79.899 Other long term (current) drug therapy

== ENCOUNTER 2020-03-16 19:20 | Emergency (ER) | payer OTHER ==
[~2020-03-16] VITALS: Ht 180.3 cm; Wt 113.6 kg
[~2020-03-16 19:20] MED LIST changes: +PALI156D IM; -RISP3 PO
[2020-03-16] MEDS ORDERED: HYDR-3831 PO (19:57)
[2020-03-16 21:05] VITALS: BP 158/63
[2020-03-16 21:19] LABS: BASOPHILS % (AUTO) 0.8 % (0.0-2.0); EOSINOPHILS % (AUTO) 2.5 % (1.0-6.0); HEMATOCRIT 40.3 % (36-46); HEMOGLOBIN 13.2 g/dL (12.0-16.0); LYMPHOCYTES % (AUTO) 25.9 % (22.0-44.0); MEAN CORPUSCULAR HEMOGLOBIN 27.5 pg (26.0-34.0); MEAN CORPUSCULAR HGB CONC 32.7 G/dL (31.0-37.0); MEAN CORPUSCULAR VOLUME 84 fL (80-100); MONOCYTES # (AUTO) 0.8 K/uL (0.1-1.0); NEUTROPHILS # (AUTO) 7.4 K/uL (1.8-7.7); NEUTROPHILS % (AUTO) 63.8 % (40.0-70.0); PLATELET COUNT (AUTO) 405 K/uL (150-450); RED CELL DISTRIBUTION WIDTH 15.3 % (11.5-14.5)
[2020-03-16 21:31] LABS: ANION GAP 10 mmol/L (8-16); CALCIUM, TOTAL 8.6 mg/dL (8.8-10.5); CARBON DIOXIDE 25 mmol/L (22-29); CHLORIDE 103 mmol/L (98-107); CREATININE 0.64 mg/dL (0.60-1.30); GLOMERULAR FILTR. RATE CALC > 60 mL/min (>60); GLUCOSE,RANDOM 177 mg/dL (70-110); POTASSIUM 3.3 mmol/L (3.5-5.1); SODIUM SERUM 138 mmol/L (136-145); UREA NITROGEN, BLOOD 3 mg/dL (7-18)
[2020-03-16 21:35] LABS: AMPHET/METH SCREEN,URINE NEGATIVE (NEGATIVE); BARBITURATE SCREEN, URINE NEGATIVE (NEGATIVE); BENZODIAZEPINES SCREEN,URINE NEGATIVE (NEGATIVE); CANNABINOID SCREEN,URINE NEGATIVE (NEGATIVE); COCAINE SCREEN,URINE NEGATIVE (NEGATIVE); METHADONE SCREEN, URINE NEGATIVE (NEGATIVE); OPIATE SCREEN,URINE NEGATIVE (NEGATIVE)
[2020-03-16 21:37] LABS: ALANINE AMINOTRANSFERASE 34 U/L (12-78); ALBUMIN 3.4 g/dL (3.4-5.0); ALKALINE PHOSPHATASE 88 U/L (46-116); ASPARTATE AMINOTRANSFERASE 17 U/L (15-37); BILIRUBIN,TOTAL 0.2 mg/dL (0.1-1.0); TOTAL PROTEIN, SERUM 7.5 g/dL (6.4-8.2)
[2020-03-16 21:37] LABS: PHENCYCLIDINE SCREEN,URINE NEGATIVE (NEGATIVE)
[2020-03-16] MEDS ORDERED: HALOPERIDOL 5 MG TABLET PO PRN (22:45)
[2020-03-16] MEDS ORDERED: LORazepam 2 MG TABLET PO PRN (22:45)
[2020-03-16] MEDS ORDERED: ZOLPIDEM TARTRATE 10 MG TABLET PO PRN (22:45)
== END 2020-03-16 22:10 | disposition left against medical advice (07) ==
LOC: EMS 19:20
DX: F20.9 Schizophrenia, unspecified (principal)
CPT/HCPCS: 36415; 80053; 80307; 85025; 99284; G0480

== ENCOUNTER 2020-12-26 19:57 | Emergency (ER) | payer MEDICAID, OTHER ==
[~2020-12-26] VITALS: Ht 177.8 cm; Wt 121.4 kg
[~2020-12-26 19:57] MED LIST changes: -ASPI81TA39 PO; -MVITFE PO; -PALI156D IM; +PALI234D IM; +RISP2TAB76 PO
[2020-12-26] MEDS ORDERED: hydroxyzine PO (20:17)
[2020-12-26 21:20] LABS: BASOPHILS % (AUTO) 0.2 % (0.0-2.0); EOSINOPHILS % (AUTO) 0.9 % (1.0-6.0); HEMATOCRIT 35.6 % (36-46); HEMOGLOBIN 11.4 g/dL (12.0-16.0); LYMPHOCYTES % (AUTO) 6.7 % (22.0-44.0); MEAN CORPUSCULAR HGB CONC 32.1 G/dL (31.0-37.0); MEAN CORPUSCULAR VOLUME 81 fL (80-100); MONOCYTES # (AUTO) 0.6 K/uL (0.1-1.0); NEUTROPHILS # (AUTO) 13.8 K/uL (1.8-7.7); PLATELET COUNT (AUTO) 503 K/uL (150-450); RED BLOOD CELL COUNT(AUTO) 4.39 MIL/uL (4.00-5.20)
[2020-12-26 21:21] LABS: NEUTROPHILS % (AUTO) 88.2 % (40.0-70.0)
[2020-12-26 21:29] LABS: ANION GAP 13 mmol/L (8-16); CALCIUM, TOTAL 8.7 mg/dL (8.8-10.5); CARBON DIOXIDE 23 mmol/L (22-29); CHLORIDE 105 mmol/L (98-107); CREATININE 0.85 mg/dL (0.60-1.30); GLOMERULAR FILTR. RATE CALC > 60 mL/min (>60); GLUCOSE,RANDOM 205 mg/dL (70-110); POTASSIUM 3.5 mmol/L (3.5-5.1); SODIUM SERUM 141 mmol/L (136-145); UREA NITROGEN, BLOOD 8 mg/dL (7-18)
[2020-12-26 21:40] LABS: ALANINE AMINOTRANSFERASE 23 U/L (12-78); ALBUMIN 3.2 g/dL (3.4-5.0); ALKALINE PHOSPHATASE 82 U/L (46-116); ASPARTATE AMINOTRANSFERASE 23 U/L (15-37); BILIRUBIN,TOTAL 0.1 mg/dL (0.1-1.0); HCG,QUANTITATIVE < 1 mIU/mL (0-6)
[2020-12-26 23:05] LABS: AMPHET/METH SCREEN,URINE NEGATIVE (NEGATIVE); BARBITURATE SCREEN, URINE NEGATIVE (NEGATIVE); BENZODIAZEPINES SCREEN,URINE NEGATIVE (NEGATIVE); CANNABINOID SCREEN,URINE NEGATIVE (NEGATIVE); COCAINE SCREEN,URINE NEGATIVE (NEGATIVE); METHADONE SCREEN, URINE NEGATIVE (NEGATIVE); OPIATE SCREEN,URINE NEGATIVE (NEGATIVE)
[2020-12-26 23:07] LABS: PHENCYCLIDINE SCREEN,URINE NEGATIVE (NEGATIVE)
[2020-12-27 00:51] LABS: APPEARANCE,URINE CLEAR (CLEAR); BILIRUBIN,URINE NEGATIVE (NEGATIVE); GLUCOSE, URINE (UA) NEGATIVE (NEGATIVE); KETONES,URINE TRACE mg/dL (NEGATIVE); LEUKOCYTE ESTERASE ,URINE NEGATIVE (NEGATIVE); NITRATE,URINE NEGATIVE (NEGATIVE); OCCULT BLOOD,URINE NEGATIVE (NEGATIVE); PROTEIN,URINE NEGATIVE (NEGATIVE); UROBILINOGEN,URINE 0.2 mg/dL (<=1.0)
[2020-12-27 00:55] LABS: COVID AG,FIA SOURCE NASOPHARYNGEAL
[2020-12-27 01:06] LABS: BACTERIA,URINE None Seen /HPF (None Seen); RBC,URINE 0-2 /HPF (0-2); SQUAMOUS EPITHELIAL CELL,UR Few /LPF (None Seen); WBC,URINE 0-2 /HPF (0-5)
[2020-12-27 01:56] VITALS: BP 112/60
== END 2020-12-27 02:01 | disposition home or self-care (01) ==
LOC: EMS 20:00
DX: R06.02 Shortness of breath (principal); K21.9 Gastro-esophageal reflux disease without esophagitis; F20.9 Schizophrenia, unspecified; F17.210 Nicotine dependence, cigarettes, uncomplicated; Z20.822 Contact with and (suspected) exposure to COVID-19; Z79.899 Other long term (current) drug therapy
CPT/HCPCS: 36415; 71045; 80053; 80307; 81001; 84484; 84702; 85025; 87426; 99284; 99406; G0480; U0003